=== PATIENT | female | born 1985 | race Two or more races ===

== ENCOUNTER 2019-11-01 03:08 | Emergency (ER) | payer SELFPAY ==
[~2019-11-01] VITALS: Ht 160 cm; Wt 46.7 kg
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
[2019-11-01 03:15] VITALS: BP 99/65
--- NOTE | 2019-11-01 05:12 | Diagnostic Imaging Report ---
EXAM: CT Head Without Intravenous Contrast CLINICAL HISTORY: AMS TECHNIQUE: Axial computed tomography images of the head/brain without intravenous contrast. CTDI is 53 mGy and DLP is 1099 mGy-cm. One or more of the following dose reduction techniques were used: automated exposure control, adjustment of the mA and/or kV according to patient size, use of iterative reconstruction technique. COMPARISON: No relevant prior studies available. FINDINGS: Brain: Unremarkable. No hemorrhage. No significant white matter disease. No edema. Ventricles: Unremarkable. No ventriculomegaly. Bones/joints: Unremarkable. No acute fracture. Soft tissues: Unremarkable. Sinuses: Unremarkable as visualized. No acute sinusitis. Mastoid air cells: Unremarkable as visualized. No mastoid effusion. IMPRESSION: No acute intracranial abnormality.
[2019-11-01 06:26] VITALS: BP 105/72
== END 2019-11-01 06:26 | disposition home or self-care (01) ==
LOC: EDBD 03:08 → EMR 03:35
DX: F10.129 Alcohol abuse with intoxication, unspecified (principal)
CPT/HCPCS: 36415; 70450; 84703; 96361; 96374; 99284; J2405; J7030